=== PATIENT | female | born 1970 | race Caucasian/White ===

== ENCOUNTER → 2017-04-12 07:40 | Outpatient (CLI) | payer BC ==
[2016-07-11 15:23] VITALS: BMI 24.3
[~2017-04-12 07:40] MED LIST: HYDROCODONE-APA1 TAB PO; K-DUR20 MEQ PO; RELPAX40 MG PO; SYNTHROID150 MCG PO; TRI-SPRINTEC1 TAB PO
== END ==
LOC: D.MRI 07:40
DX: M79.672 Pain in left foot (principal)

== ENCOUNTER → 2017-05-01 12:03 | Outpatient (CLI) | payer BC ==
[2016-07-11 15:23] VITALS: BMI 24.3
== END | disposition home or self-care (01) ==
LOC: D.MAMMO 08:00
DX: Z12.31 Encounter for screening mammogram for malignant neoplasm of breast (principal)

== ENCOUNTER → 2018-05-14 18:21 | Outpatient (CLI) | payer BC ==
[2016-07-11 15:23] VITALS: BMI 24.3
== END | disposition home or self-care (01) ==
LOC: D.MAMMO 08:00
DX: Z12.31 Encounter for screening mammogram for malignant neoplasm of breast (principal)

== ENCOUNTER 2019-05-04 09:00 | Emergency (ER) | payer BC ==
[~2019-05-04] VITALS: Ht 170.2 cm; Wt 75.0 kg
[2019-05-04 09:06] VITALS: Ht 170.2 cm; Wt 75.0 kg
[2019-05-04] MEDS ORDERED: VITAMIN D31000 UNI2 PO (09:08)
[2019-05-04 09:23] LABS: APPEARANCE CLEAR (CLEAR); BILIRUBIN NEGATIVE (NEGATIVE); COLOR YELLOW (YELLOW); GLUCOSE NEGATIVE (NEGATIVE); KETONE NEGATIVE (NEGATIVE); NITRITE NEGATIVE (NEGATIVE); PROTEIN NEGATIVE (NEGATIVE); SPECIFIC GRAVITY 1.015 (1.005-1.020); UROBILINOGEN NORMAL (NORMAL)
[2019-05-04 09:29] LABS: BACTERIA FEW /hpf (NONE SEEN); EPITHELIAL CELLS 0-5 /hpf (0-5); RED CELLS - URINE 0-5 /hpf (0-5); WHITE CELLS - URINE 0-5 /hpf (0-5)
[2019-05-04 09:29] LABS: BASOPHILS 0.2 % (0-2); EOSINOPHILS 0.1 % (0-7); HEMATOCRIT 42.5 % (36.0-48.0); HEMOGLOBIN 14.4 g/dL (12-16); IMMATURE GRANULOCYTES 0.2 % (0-5); LYMPHOCYTES 10.2 % (15-50); MCH 28.9 pg (26.0-34.0); MCHC 33.9 g/dL (31.0-37.0); MCV 85.3 fL (80.0-100.0); MEAN PLATELET VOLUME 10.5 fL (7.4-10.4); MONOCYTES 2.7 % (2-11); NEUTROPHILS 86.6 % (40-80); RBC 4.98 10x6/uL (4.00-5.40); RDW 13.1 % (11.5-14.5); WBC 12.4 10x3/uL (4.8-10.8)
[2019-05-04 09:30] LABS: PLATELET COUNT 300 10x3/uL (130-400)
[2019-05-04 09:42] LABS: ALBUMIN 3.8 g/dL (3.4-5.0); ALKALINE PHOSPHATASE 83 U/L (46-116); ALT (SGPT) 20 U/L (10-68); BILIRUBIN - TOTAL 0.32 mg/dL (0.2-1.3); CALC OSMOLALITY 275 mosm/kg (275-300); CARBON DIOXIDE 27.8 mmol/L (21.0-32.0); CHLORIDE - SERUM 103 mmol/L (98-107); CREATININE - SERUM 0.9 mg/dL (0.6-1.3); GLUCOSE 108 mg/dL (74-106); POTASSIUM - SERUM 3.7 mmol/L (3.5-5.1); PROTEIN - SERUM 8.2 g/dL (6.4-8.2); SODIUM 138 mmol/L (136-145); UREA NITROGEN 11 mg/dL (7-18); eGFR NON AFRICAN AMERICAN 70 mL/min (90-120)
[2019-05-04 09:45] LABS: LIPASE 132 U/L (73-393)
[2019-05-04 09:46] LABS: TROPONIN-I < 0.017 ng/mL (0.000-0.060)
[2019-05-04] MEDS ORDERED: HYDROCODON-ACE1 EAC7 PO (12:00)
[2019-05-04 12:08] VITALS: BP 126/72
[2019-05-08] MEDS ORDERED: LEVOTHYROXINE112 MCG PO (15:53)
[2019-05-08] MEDS ORDERED: IMITREX100 MG PO (15:54)
[2019-05-08] MEDS ORDERED: CITRACAL + D E1 EACH PO (15:54)
[2019-05-08] MEDS ORDERED: ORTHO TRI-CYCLEN PO (15:59)
== END 2019-05-04 12:08 | disposition home or self-care (01) ==
LOC: D.ER 09:00
PROVIDERS: Emergency Medicine
DX: K80.50 Calculus of bile duct without cholangitis or cholecystitis without obstruction (principal)

== ENCOUNTER 2019-05-09 08:26 | Day surgery (SDC) | payer BC ==
[~2019-05-09] VITALS: Ht 172.7 cm; Wt 76.2 kg
[~2019-05-09 08:26] MED LIST changes: +CITRACAL + D E1 EACH PO; +HYDROCODON-ACE1 EAC7 PO; +IMITREX100 MG PO; +LEVOTHYROXINE112 MCG PO; +ORTHO TRI-CYCLEN PO; +VITAMIN D31000 UNI2 PO
[2019-05-09 08:59] LABS: ANION GAP 13.4 mmol/L (8-16); CALCIUM 7.8 mg/dL (8.5-10.1); CARBON DIOXIDE 28.6 mmol/L (21.0-32.0); CREATININE - SERUM 0.9 mg/dL (0.6-1.3)
[2019-05-09 09:11] LABS: HEMATOCRIT 37.8 % (36.0-48.0); HEMOGLOBIN 12.7 g/dL (12-16); LYMPHOCYTES 28.6 % (15-50); MCH 28.9 pg (26.0-34.0); MCHC 33.6 g/dL (31.0-37.0); MCV 86.1 fL (80.0-100.0); MEAN PLATELET VOLUME 9.9 fL (7.4-10.4); NEUTROPHILS 63.3 % (40-80); PLATELET COUNT 259 10x3/uL (130-400); RBC 4.39 10x6/uL (4.00-5.40); RDW 12.4 % (11.5-14.5); WBC 6.4 10x3/uL (4.8-10.8)
[2019-05-09 09:42] VITALS: BP 125/70; Ht 172.7 cm; Wt 76.2 kg
[2019-05-09 09:55] LABS: HCG URINE NEGATIVE (NEGATIVE)
[2019-05-09] MEDS ORDERED: HYDROCODON-ACE1 EA10 PO (11:26)
--- NOTE | 2019-05-09 11:50 | NUR ---
PT VOICES NO PAIN WHEN ASKED IF SHE IS HURTING PT VOICED "NO". WILL CONTINUE TO MONITOR PAIN
--- NOTE | 2019-05-09 14:08 | NUR ---
DC INSTRUCTIONS GIVEN TO PT/FAMILY. STATE UNDERSTANDING. DC'D IV CATH FULLY INTACT.
--- NOTE | 2019-05-09 14:33 | NUR ---
PT LEFT UNIT VIA WC AT 1422
--- NOTE | 2019-05-16 11:37 | OP ---
PATIENT NAME: JANA ESTEBAN MEDICAL RECORD: [id number] :66 LOCATION:D[facility] ADMISSION DATE: SURGEON: DARWIN ROGERS MD DATE OF OPERATION: 05/09/2019 PREOPERATIVE DIAGNOSES: 1. Gallstones. 2. History of total thyroidectomy for multinodular goiter. POSTOPERATIVE DIAGNOSES: 1. Gallstones. 2. History of total thyroidectomy for multinodular goiter. PROCEDURE: Laparoscopic cholecystectomy. SURGEON: Darwin Rogers MD REPORT OF PROCEDURE: The patient's abdomen was prepped and draped in sterile fashion. A cutdown was made on the superior aspect of the umbilicus, 0 Vicryls were placed in the fascia bilaterally and the fascia was incised with 15-blade. I then bluntly entered the peritoneal cavity and placed a 12-mm Fidel port. Under direct visualization, a 5 mm trocar was placed in the epigastrium and 2 more 5-mm trocars were placed in the right subcostal region. The gallbladder was grasped and elevated. There was a lot of inflammatory adhesions present, which were taken down with blunt dissection and electrocautery. The cystic artery and cystic duct were dissected free. 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 All these structures were clipped proximally and distally and ligated in standard fashion. The gallbladder was then taken off the liver bed using electrocautery and placed into the right upper quadrant. Any bleeding from the liver bed was then treated with electrocautery. At this point, the ports and insufflation were then removed and the gallbladder was taken out through the umbilicus. The umbilical fascia was closed with interrupted 0 Vicryls times 3. The wounds were then irrigated out with normal saline and infused with 10 mL of 0.25% Marcaine with epinephrine. The skin incisions were all closed with subcutaneous 5-0 Monocryl and dressed appropriately. COMPLICATIONS: None. CONDITION: Stable. ANESTHESIA: General endotracheal and local. BLOOD LOSS: Minimal. TRANSINT:[id number] Voice Confirmation ID: [id number] DOCUMENT ID: [id number] OPERATIVE REPORT [id number] JANA ESTEBAN DARWIN ROGERS MD at 1139 CC: NAA HOPSON [id number] DICTATION DATE: 05/09/19 1120 [facility] REPAIRER: 05/09/19 2147 DEP SDC 05/09/[address] [facility] [address] [facility] [place] [address]
== END 2019-05-09 14:27 | disposition home or self-care (01) ==
LOC: D.OPS 08:26 → D.PAN 10:45 → D.OPS 10:45
PROVIDERS: ATTEND Surgery
DX: K80.80 Other cholelithiasis without obstruction (principal)

== ENCOUNTER → 2019-05-28 10:00 | Outpatient (CLI) | payer BC ==
[2019-05-09 09:42] VITALS: BMI 25.6
[~2019-05-28 10:00] MED LIST changes: +HYDROCODON-ACE1 EA10 PO
== END | disposition home or self-care (01) ==
LOC: D.MAMMO 10:00
PROVIDERS: ATTEND Family Medicine
DX: Z12.31 Encounter for screening mammogram for malignant neoplasm of breast (principal)

== ENCOUNTER → 2020-01-23 08:24 | Outpatient (CLI) | payer BC ==
[2019-05-09 09:42] VITALS: BMI 25.6
== END | disposition home or self-care (01) ==
LOC: D.US 08:24
PROVIDERS: ATTEND Family Medicine
DX: N93.9 Abnormal uterine and vaginal bleeding, unspecified (principal)